=== PATIENT | male | born 1930 | race Caucasian/White ===

== ENCOUNTER 2017-04-02 11:32 | Inpatient (IN) | payer MEDICARE, OTHER ==
[~2017-04-02] VITALS: Ht 180.3 cm; Wt 96.5 kg
--- NOTE | ~2017-04-02 | EKG ---
PATIENT: MELA HOPSON UNIT #: [id number] Ventricular Rate: 85 BPM Atrial Rate: 85 BPM P-R Interval: 194 ms QRS Duration: 118 ms Q-T Interval: 390 ms QTC Calculation(Bezet): 464 ms P Villard: 45 degrees Calculated R Villard: 41 degrees Calculated T Villard: 108 degrees Diagnosis Line: Normal sinus rhythm Diagnosis Line: Possible Left atrial enlargement Diagnosis Line: Septal infarct , age undetermined Diagnosis Line: Abnormal ECG Diagnosis Line: When compared with ECG of 03-APR-2017 05:35, Diagnosis Line: Septal infarct is now Present Diagnosis Line: Nonspecific T wave abnormality, worse in Inferior Diagnosis Line: leads Diagnosis Line: Confirmed by DAMION BARRETT MD ([id number]) on 04/04/2017 Diagnosis Line: 7:16:47 AM INTERPRETING MD: ARNOLD ACEVES
--- NOTE | ~2017-04-02 | CR63 ---
[facility] A Service of [facility] RADIOLOGY TEXT RESULTS PATIENT: MELA HOPSON LOCATION: [facility] : 32 UNIT #: [id number] AGE: [address]: Wilmer Harrison MD SEX: M ORDER DR: [id number] [facility] [address] [facility] [place], [place] [address] [id number] I MR#: [id number] #: [id number] NAME: MELA HOPSON. : 1930 SEX: M STUDY DATE/TIME: 04/02/2017 12:22 UNIT: [facility] ROOM: [facility] STUDY DESCRIPTION: CR Chest 2 View Attending Physician: Wilmer Harrison M.D. Ordering Physician: Pascual Hinton M.D. Primary Care Physician: Kip Ambrose M.D. MEDICAL IMAGING REPORT This report is preliminary unless electronic signature is present EXAM Chest x-ray INDICATIONS Shortness of air today. History of hypertension. TECHNIQUE PA and lateral views of the chest are compared with 03/06/2016. FINDINGS Heart is enlarged. There is some mild infiltrate or atelectasis at the left base. The lateral views are essentially nondiagnostic. No pneumothorax. IMPRESSION Stable cardiomegaly. Mild infiltrate or atelectasis left lung base. Please note that the lateral views are essentially nondiagnostic. Dictated by... Robson Tse Jr., M.D. THIS IS AN ELECTRONICALLY VERIFIED REPORT Robson Tse Jr., M.D. at 04/03/2017 7:57 AM PEDRO/rashid TD: 04/02/2017 21:59 JOB #: [id number] MEDICAL IMAGING REPORT Page 1 of 1 COPY
--- NOTE | ~2017-04-02 | A ---
[facility] [place] Nutrition Therapy DATE: 04/06/17 Patient: MELA HOPSON Physician: ROSY Address: [address] Room/Bed: [address] [place] [address], Zip: [place] [address] Admit Date: 04/03/17 Date of : 32 Height: 5 11 Weight: 212 96.5 NUTRITIONAL ASSESSMENT: REASON: Consult re: low potassium diet education Admitting dx: 86 y/o male admitted with dyspnea and weakness PMH: CVA, CKD stage III s/p nephrectomy for renal cell cancer, PAF, BPH, DM, PVD, CAD, HTN, HLD Anthropometrics: Ht: 71", Wt: 96.5 kg, BMI: 30 (stage I obese) Labs: glucose 141, BUN 55, creat 2.1, GFR 28.1, glucose POC 116-221, A1C 8.5 (11/09/15), Na/K WNL since admission, no Phos/Mg drawn Meds: Reviewed Assessment: Chart reviewed, events noted. See admitting dx and PMH as stated above. Low potassium diet education given to the patient's with handouts and RD contact info. The handout was verbally reviewed with her. She was compliant and asked questions, but I am unsure of how well the information was understood and will be able to be implemented at home, as her and her are both of advanced age. RD explained rationale for diet education, noting the patient has CKD stage III s/p nephrectomy with abnormal renal labs, to help prevent the necessity for dialysis. was appreciative and I encouraged her to call our office with any questions. Respectfully, Maryann Lockwood, [place], LD [facility] cc: client file
--- NOTE | ~2017-04-02 | CO ---
Unit #: [id number] #: [id number] Patient: MELA HOPSON [id number] [address] [address] [id number] I MR#: [id number] NAME: MELA HOPSON. ROOM: 55 Age: 86 Sex: M Admission Date: 04/03/2017 : 1930 Attending Physician: Wilmer Harrison M.D. Primary Care Physician: Kip Ambrose M.D. Consultation Date: 04/02/2017 CONSULTATION REPORT REASON FOR CONSULTATION Renal insufficiency. Thank you very much for asking me to see this patient in consultation. HISTORY OF PRESENT ILLNESS Mr. eMla Hopson is an 86-year-old male with history of chronic kidney disease, late stage 3 to early stage 4, who I see in the office who in 2015 had a creatinine of 1.8 and plus or minus, in 2014 his creatinine ranging between 1.4 and 2, in 2013 again 1.6 and 2. He is status post right nephrectomy secondary to renal cell CA in 2009. The patient presented here with increasing shortness of breath, occasional nausea. No vomiting. No chest pain. No significant swelling. No urinary symptoms. He was noted upon presentation to have a BUN and creatinine of 32 and 2.0. Because of this, I was asked to see the patient. The patient also initial troponin was noted to be increased to 2.17. He states again his shortness of breath only last several days. 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 ALLERGIES He is allergic to Ambien, Zoloft, Lipitor. SOCIAL HISTORY He does not smoke or drink. He is . REVIEW OF SYSTEMS As mentioned in the HPI. Denies any fevers, chills, visual problems, sinus problems, cough, or hemoptysis. No severe abdominal pain. No nausea, vomiting, or diarrhea. No increased urinary symptoms. No skin rashes. No recent seizures or strokes. Again, he does have the chronic weakness from his previous stroke. FAMILY HISTORY Noncontributory. PHYSICAL EXAMINATION Unit #: [id number] #: [id number] Patient: MELA HOPSON GENERAL: He is alert and oriented. His and daughter at bedside. VITAL SIGNS: T-max 99.3, pulse 77 to 96, blood pressure 113 to 132 over 72 to 80. HEENT: He is normocephalic and atraumatic. Pupils are equal, round, and reactive to light. Extraocular muscles are intact. Hearing appears to be normal. Mouth is clear. No erythema. No exudate. NECK: Supple. No adenopathy. CARDIAC: He is without a rub. No S3 or S4. LUNGS: Sound fairly clear anterior and laterally and posteriorly. ABDOMEN: Bowel sounds positive. Nontender. Soft. EXTREMITIES: He has some very trace lower extremity swelling. His pulses are intact in lower extremities. SKIN: No acute rashes. NEURO: Weakness on his right side. : Deferred. DIAGNOSTIC STUDIES LABORATORY RESULTS: Shows sodium of 135, potassium 4.6, chloride is 101, bicarb is 23, BUN and creatinine of 32 and 2.0 with a glucose of 301. His calcium is 8.6, albumin 3.4. BNP 769. Lactic acid 3.1. INR is 1.1. Troponin is 2.17. UA shows specific gravity of 1.026, 2+ protein, 500 of glucose, 0 to 2 rbc's, 2 to 5 wbc's. Again previous creatinine is as mentioned above. His hemoglobin [place] 15.7[place] [address], platelets 183,000. IMAGING STUDIES: Last renal ultrasound was in 2016 on his left side showed just a 2 cm cyst. ASSESSMENT AND PLAN 1. Chronic kidney disease, late stage 3, early stage 4. Again, creatinine is a little elevated, but overall probably around his baseline. Due to his increased shortness of breath, I agree with some IV Lasix. We will adjust his Lasix to 40 mg IV q.12 hours for now. We will follow electrolytes and adjust depending on his volume and his electrolytes. I did have a long discussion with he and his daughter and his about contrast dye needed. The risks versus benefits of heart catheterization if needed and they understand and they will think about it and we will wait and see what cardiology's input to see if catheterization is recommended or not. If one is, I certainly would hold his diuretics and no CRISTOFER inhibitor, around cardiac catheterization time. Fluids, again may want to not give those due to the fact that he has increased shortness of breath, but again await for Cardiology input and will follow. 2. Hypertension, continue current medications. We will follow trends. 3. Atherosclerotic coronary artery disease that appears to have maybe myocardial infarction at this time. 4. Benign prostatic hyperplasia. We will order a bladder scan postvoid residual. 5. Diabetes mellitus. 6. Status post nephrectomy secondary to renal cell cancer in the past. 7. History of cerebrovascular accident. Dictated by... Erick Basilio M.D. CASEY/angela Unit #: [id number] #: [id number] Patient: MELA HOPSON [place] TD: 04/04/2017 01:53 JOB #: [id number] CONSULTATION REPORT Page 1 of 1 X Anatoly Basilio MD X CONSULTATION REPORT
--- NOTE | ~2017-04-02 | EKG ---
PATIENT: MELA HOPSON UNIT #: [id number] Ventricular Rate: 91 BPM Atrial Rate: 91 BPM P-R Interval: 200 ms QRS Duration: 128 ms Q-T Interval: 384 ms QTC Calculation(Bezet): 472 ms P Noble: 65 degrees Calculated R Noble: 91 degrees Calculated T Noble: -52 degrees Diagnosis Line: Normal sinus rhythm Diagnosis Line: Rightward axis Diagnosis Line: Non-specific intra-ventricular conduction block Diagnosis Line: T wave abnormality, consider inferolateral Diagnosis Line: ischemia Diagnosis Line: Abnormal ECG Diagnosis Line: When compared with ECG of 06-APR-2016 15:24, Diagnosis Line: [place] interval has decreased Diagnosis Line: Non-specific intra-ventricular conduction block Diagnosis Line: has replaced Right bundle branch block Diagnosis Line: inferolateral ischemia is new Diagnosis Line: Confirmed by DAMION BARRETT MD ([id number]) on 04/02/2017 Diagnosis Line: 10:14:22 PM INTERPRETING MD: ARNOLD ACEVES
--- NOTE | ~2017-04-02 | HP ---
Unit #: [id number] #: [id number] Patient: MELA HOPSON [id number] [address] [address] [id number] I MR#: [id number] NAME: MELA HOPSON. ROOM: 17588 Age: 86 Sex: M Admission Date: 04/02/2017 : 1930 Attending Physician: Wlimer Harrison M.D. Primary Care Physician: Kip Ambrose M.D. HISTORY AND PHYSICAL HISTORY OF PRESENT ILLNESS This is an 86-year-old male who is a patient of Dr. Brendon Fajardo and was last seen in his office in July 2016. He has a prior history of paroxysmal afib, CVA with right-sided residual, chronic kidney disease stage 3 status post nephrectomy in 2008 for renal cell cancer, carotid artery disease, peripheral vascular disease, status post lower extremity stent, echocardiogram with EF of 55% in 2008, hypertension, hyperlipidemia, diabetes mellitus, benign prostate hypertrophy and coronary artery disease status post cardiac cath in 2008. His cath results are not currently available but his daughter and state he had nonobstructive disease in small vessels. He presented to the ER with increasing dyspnea and weakness ongoing since about Sunday. He denies chest pain or chest discomfort, denies lower extremity edema, abdominal swelling or PND. He does endorse orthopnea and an occasional nonproductive cough. He had some diarrhea on Sunday all day, after eating blueberries but denies recent illness with fevers, chills or body aches. His point of care troponin in the ER was 1.42. Chest x-ray showed cardiomegaly with pulmonary vascular congestion and a left lower lobe infiltrate. PAST MEDICAL HISTORY 1. Paroxysmal afib, not on chronic anticoagulation. 2. History of CVA with right-sided residual. 3. Chronic kidney disease stage 3, status post nephrectomy in 2008 for renal cell cancer. 4. Carotid artery disease. 5. Peripheral vascular disease, status post lower extremity stent. 6. Echocardiogram with EF 55% in 2008. 7. Coronary artery disease, status post cath with nonobstructive disease in 2008 (records currently not available). 8. Hypertension. 9. Hyperlipidemia. 10. Diabetes mellitus. 11. Benign prostate hypertrophy. PAST SURGICAL HISTORY 1. Right nephrectomy. 2. Cardiac catheterization. 3. Appendectomy. SOCIAL HISTORY The patient lives with his . He is immobile. He uses his walker to Unit #: [id number] #: [id number] Patient: MELA HOPSON get from his bed to his chair but uses a wheelchair outside his home. He used to smoke but quit more than 60 years ago. He denies a history of alcohol or illicit drug use. FAMILY HISTORY His mother had coronary artery disease in her 70s. ALLERGIES Zoloft, Ambien, Zocor. HOME MEDICATIONS 1. Januvia 50 mg p.o. daily. 2. Levemir FlexTouch 25 units q.a.m. 3. Metoprolol 25 mg p.o. daily. 4. Amiodarone 50 mg p.o. daily. 5. Lovastatin 40 q.h.s. 6. Levothyroxine 75 mcg q.a.m. 7. Allopurinol 100 mg p.o. b.i.d. REVIEW OF SYSTEMS A 10-point review of systems was negative except as indicated in HPI. The patient denies any chest pain or chest discomfort. He did have some diarrhea on Sunday. He denies nausea, vomiting or change in appetite. He denies abdominal swelling or lower extremity edema as well as PND. He does endorse orthopnea and dyspnea on exertion, as well as a nonproductive occasional cough. PHYSICAL EXAMINATION VITAL SIGNS: Temperature 99.3, heart rate 96, respiratory rate 18, blood pressure 113/80. GENERAL: This is a pleasant, , 86-year-old obese male resting in bed in no acute distress. HEENT: Head is atraumatic and normocephalic. Pupils are equal and reactive to light. Mucous membranes are moist and intact. NECK: Supple. Trachea is midline. No JVD. CARDIOVASCULAR: S1 and S2. Regular rate and rhythm. LUNGS: Clear and diminished in bases. Nonlabored respirations. ABDOMEN: Soft, nontender, nondistended with bowel sounds present. EXTREMITIES: Pulses are diminished in bilateral lower extremities. No pedal edema. No cyanosis. NEUROLOGIC: Alert and oriented x3. Follows all commands with some right-sided weakness. DIAGNOSTIC STUDIES LABORATORY RESULTS: Point of care troponin was 1.42 and BNP was 769. Sodium 135, potassium 4.6, chloride 101, BUN 32, creatinine 2, glucose 301, hemoglobin 15.3, hematocrit 45.3, white blood cell count 14.7, platelets 183 and PT 12.3, INR 1.1. IMAGING: Chest x-ray showed mild cardiomegaly with left lower lobe infiltrate. CARDIOVASCULAR: EKG reveals sinus rhythm with a ventricular rate of 90 and right bundle-branch block and nonspecific T-wave abnormality. ASSESSMENT 1. Dyspnea. 2. Non-ST elevation myocardial infarction. Unit #: [id number] #: [id number] Patient: MELA HOPSON 3. Diabetes mellitus. 4. Hypertension. 5. Hyperlipidemia. 6. History of cerebrovascular accident. 7. Chronic kidney disease, status post nephrectomy secondary to renal cell cancer. 8. Peripheral vascular disease, status post stent. 9. Acute congestive heart failure. 10. Coronary artery disease, status post cath with nonobstructive disease per patient (records not available). PLAN The patient denies chest pain. Breathing is improved on oxygen. We will admit for gentle diuresis. Check echocardiogram and fasting lipid profile. Continue to trend enzymes. Obtain old cath results. Family wants conservative treatment. Family states patient's blood glucoses are hard to manage when he is admitted to the hospital. He follows Dr. Barba outpatient. We will consult him for blood glucose management. We will ask Dr. Sony Basilio, who follows him as an outpatient, to follow him as well. Continue home medications. Diurese with Lasix 40 mg IV daily. Treat with aspirin, statin, beta lasha and Lovenox. Dictated by Ana Christianson APRN for Benito Carias/moose TD: 04/02/2017 17:09 JOB #: [id number] HISTORY AND PHYSICAL Page 1 of 1 X X HISTORY AND PHYSICAL
--- NOTE | ~2017-04-02 | EKG ---
PATIENT: MELA HOPSON UNIT #: [id number] Ventricular Rate: 79 BPM Atrial Rate: 79 BPM P-R Interval: 162 ms QRS Duration: 124 ms Q-T Interval: 386 ms QTC Calculation(Bezet): 442 ms P Magnolia: 35 degrees Calculated R Magnolia: 52 degrees Calculated T Magnolia: 94 degrees Diagnosis Line: Normal sinus rhythm Diagnosis Line: Possible Left atrial enlargement Diagnosis Line: Non-specific intra-ventricular conduction delay Diagnosis Line: Consider prior Anteroseptal infarct , age Diagnosis Line: undetermined Diagnosis Line: Abnormal ECG Diagnosis Line: When compared with ECG of 02-APR-2017 12:07, Diagnosis Line: (unconfirmed) Diagnosis Line: Anteroseptal infarct is now Present Diagnosis Line: Nonspecific T wave abnormality has replaced Diagnosis Line: inverted T waves in Inferior leads Diagnosis Line: Confirmed by CHAVA MCKENNA MD ([id number]) on Diagnosis Line: 04/02/2017 10:51:32 PM INTERPRETING MD: MAXIMINO
--- NOTE | ~2017-04-02 | CR18 ---
[facility] A Service of [facility] RADIOLOGY TEXT RESULTS PATIENT: MELA HOPSON LOCATION: [facility] 5501 : 32 UNIT #: [id number] AGE: [address]: Wilmer Harrison MD SEX: M ORDER DR: [id number] [facility] [address] [facility] [address]. [place], [place] [address] [id number] I MR#: [id number] Acc #: [id number] NAME: MELA HOPSON. : 1930 SEX: M STUDY DATE/TIME: 04/05/2017 12:07 UNIT: [facility] ROOM: [facility] STUDY DESCRIPTION: CR Ankle 2 Views Rt Attending Physician: Wilmer Harrison M.D. Ordering Physician: Erick Basilio M.D. Primary Care Physician: Kip Ambrose M.D. MEDICAL IMAGING REPORT This report is preliminary unless electronic signature is present EXAMINATION Two views right ankle. DATE 04/05/2017 HISTORY Right ankle pain for 1 day. Fell. History of gout. COMPARISON None. FINDINGS Obliquely oriented mildly displaced fracture of the distal right fibular metaphysis extending to the level of the talar dome. There is approximately 3 mm lateral displacement of the main distal fracture fragment. Posterior malleolus and medial malleolus appear intact. There is mild widening of the medial margin of the ankle joints which may indicate underlying ligamentous injury. Osteopenic changes are present. Calcific atherosclerotic changes are noted. There is a small plantar calcaneal spur. IMPRESSION 1. Oblique mildly displaced fracture involving the distal right fibular metaphysis extending to the level of the talar dome. 2. Mild widening of the medial margin of the ankle joint may represent underlying ligamentous instability. No joint dislocation. 3. Osteopenia. Dictated by... Gilma Hernandez M.D. [facility] A Service of [facility] RADIOLOGY TEXT RESULTS PATIENT: MELA HOPSON LOCATION: [facility] 5501-11 : 32 UNIT #: [id number] AGE: [address]: Wilmer Harrison MD SEX: M ORDER DR: THIS IS AN ELECTRONICALLY VERIFIED REPORT Gilma Hernandez M.D. at 04/06/2017 1:54 PM ARMIN/cindi TD: 04/05/2017 23:26 JOB #: [id number] MEDICAL IMAGING REPORT Page 1 of 1 COPY
--- NOTE | ~2017-04-02 | DS ---
Unit #: [id number] #: [id number] Patient: MELA HOPSON [id number] [address] [address] [id number] I MR#: [id number] NAME: MELA HOPSON ROOM: [facility] Age: 86 Sex: M Admission Date: 04/03/2017 : 1930 Discharge Date: Attending Physician: Wilmer Harrison M.D. Primary Care Physician: Kip Ambrose M.D. DISCHARGE SUMMARY ADDENDUM DISCHARGE MEDICATIONS Nitroglycerin 0.4 mg sublingual q.5 minutes x3 p.r.n. for chest pain. Dictated by... BRISIEDA Coyle TD: 04/06/2017 13:17 JOB #: [id number] DISCHARGE SUMMARY Page 1 of 1 X X DISCHARGE SUMMARY
--- NOTE | ~2017-04-02 | CO ---
Unit #: [id number] #: [id number] Patient: MELA HOPSON [id number] [address] [address] [id number] I MR#: [id number] NAME: MELA HOPSON. ROOM: 55 Age: 86 Sex: M Admission Date: 04/03/2017 : 1930 Attending Physician: Wilmer Harrison M.D. Primary Care Physician: Kip Ambrose M.D. Consultation Date: 04/05/2017 CONSULTATION REPORT REASON FOR CONSULT Right ankle fracture. HISTORY OF PRESENT ILLNESS This is an 86-year-old male, who presented to the emergency department with increasing dyspnea and weakness for about three days. His and daughter state that he did sustain a fall during one of his episodes of dyspnea but did not complain of any injury at that time. As his dyspnea and weakness worsened, he was then taken to the emergency room for evaluation. He was admitted with diagnosis of CHF exacerbation and pulmonary congestion. While inpatient, stated that he was having some right ankle pain. Upon inspection, swelling and ecchymosis were found so an x-ray was obtained showing a distal fibula fracture. The patient, of note, had a stroke in the late 90s and has residual weakness of the right side including his arm and leg. He is unable to bear any weight on the right leg and his states that he mainly drags his foot as he walks using a walker. Currently, he states his pain is minimal to moderate and depends on the positioning of his leg. He is unable to move his ankle actively but does have some sensation to light touch and pain. Denies pain in any other joints or any other musculoskeletal symptoms at this time. PAST MEDICAL HISTORY 1. Paroxysmal atrial fibrillation. 2. History of CVA with right-sided residual weakness. 3. Chronic kidney disease, stage 3, status post nephrectomy in 2008 for renal cell cancer. 4. Carotid artery disease. 5. Peripheral vascular disease. 6. Coronary artery disease. 7. Hypertension. 8. Hyperlipidemia. 9. Diabetes mellitus. 10. BPH. PAST SURGICAL HISTORY 1. Right nephrectomy. 2. Cardiac catheterization. 3. Appendectomy. SOCIAL HISTORY The patient lives at home with his . He is minimally mobile and uses his walker to get to his wheelchair but uses a wheelchair for the most part for ambulation. Quit smoking 60 years ago. Denies alcohol or drug Unit #: [id number] #: [id number] Patient: MELA HOPSON. FAMILY HISTORY Positive for coronary artery disease. ALLERGIES Zoloft, Ambien, Zocor. HOME MEDICATIONS 1. Januvia 50 mg p.o. daily. 2. Levemir FlexTouch 25 units q.a.m. 3. Metoprolol 25 mg p.o. daily. 4. Amiodarone 50 mg p.o. daily. 5. Lovastatin 40 mg nightly. 6. Levothyroxine 75 mcg q.a.m. 7. Allopurinol 100 mg p.o. b.i.d. REVIEW OF SYSTEMS A full review of systems was conducted and other than his resolving symptoms of dyspnea and orthopnea and his right ankle pain, all other review of systems were negative. PHYSICAL EXAMINATION GENERAL: He is in no acute distress. He is alert and oriented x3 and pleasant. VITAL SIGNS: He is afebrile and his vital signs are stable. EXTREMITIES: Examination of the right lower extremity reveals some ecchymosis and swelling to the ankle. The right lower extremity rests in an externally rotated position due to the patient's hemiparesis and he is unable to internally rotate. This is causing the foot to sublux laterally, causing skin tenting over the medial malleolus. He is tender over the medial side of the ankle as well as over the distal fibula. He does state that he has intact sensation but is unable to move his toes or dorsiflex or plantar flex his ankle which he states is a chronic issue. He has somewhat delayed but present capillary refill in his toes. DIAGNOSTIC STUDIES IMAGING: Three views of the right ankle were taken which show an oblique distal fibula fracture at the level of the ankle joint with some medial clear space widening. No other fractures or dislocations visible. ASSESSMENT An 86-year-old male with right bimalleolar equivalent ankle fracture. PLAN Treatment options were discussed with the patient as well as the family and due to the patient's multiple co-morbidities as well as his hemiparesis and lack of ambulation on the right side, it is thought that it would be best to treat him conservatively at this time. A short-leg cast was applied after closed reduction was performed at bedside. The patient tolerated the procedure well without complication. Post reduction x-rays were taken which show the ankle to be in good alignment and the cast to be in a proper location. The family and the patient were instructed on signs of decreased vasculature within the foot. Due to his vasculature issues, they need to keep a close eye on his vascular status within that extremity, making sure that he is getting good blood flow to his toes. We will see him back in clinic in 10-[address] Frank. Clinic phone number is [phone]. The patient's family is to Unit #: [id number] #: [id number] Patient: MELA HOPSON call to make that appointment and no surgical intervention is planned at this time. Dictated by... Roberto Morris M.D. for Sam Frank M.D. JAMEEL/acosta TD: 04/07/2017 10:23 JOB #: [id number] CONSULTATION REPORT Page 1 of 1 X X CONSULTATION REPORT
--- NOTE | ~2017-04-02 | EKG ---
PATIENT: MELA HOPSON UNIT #: [id number] Ventricular Rate: 81 BPM Atrial Rate: 81 BPM P-R Interval: 188 ms QRS Duration: 124 ms Q-T Interval: 434 ms QTC Calculation(Bezet): 504 ms P [place]: 42 degrees Calculated R [place]: 53 degrees Calculated T [place]: 56 degrees Diagnosis Line: Normal sinus rhythm Diagnosis Line: Possible Left atrial enlargement Diagnosis Line: Septal infarct , age undetermined Diagnosis Line: Abnormal ECG Diagnosis Line: When compared with ECG of 04-APR-2017 05:36, Diagnosis Line: Incomplete right bundle branch block is no longer Diagnosis Line: Present Diagnosis Line: Septal infarct is now Present Diagnosis Line: Confirmed by DAMION BARRETT MD ([id number]) on 04/06/2017 Diagnosis Line: 4:57:47 PM INTERPRETING MD: ARNOLD ACEVES
--- NOTE | ~2017-04-02 | CR21 ---
[facility] A Service of [facility] RADIOLOGY TEXT RESULTS PATIENT: MELA HOPSON LOCATION: [facility] 55- : 32 UNIT #: [id number] AGE: [address]: Wilmer Harrison MD SEX: M ORDER DR: [id number] [facility] [address] [facility]. [place], [place] [address] [id number] I MR#: [id number] Acc #: [id number] NAME: MELA HOPSON. : 1930 SEX: M STUDY DATE/TIME: 04/05/2017 18:36 UNIT: [facility] ROOM: [facility] STUDY DESCRIPTION: CR Ankle Min 3 Views Rt Attending Physician: Wilmer Harrison M.D. Ordering Physician: Marcella Fernandez M.D. Primary Care Physician: Kip Ambrose M.D. MEDICAL IMAGING REPORT This report is preliminary unless electronic signature is present EXAM Four views right ankle. INDICATION Right ankle pain after a reduction. Patient fractured his ankle on Sunday. FINDINGS Comparison made to prior exam from earlier today. Patient is again noted to have an obliquely oriented fracture of the distal fibular diametaphysis with extension to the articular surface. Full assessment of the fracture is limited due to overlying splinting material but I do think alignment appears improved significantly when compared to the exams from earlier today. There is an ankle effusion and associated soft tissue swelling. No other definite fractures are seen. There is enthesopathic change seen along the plantar aspect of the calcaneus. IMPRESSION Bony alignment appears improved, post reduction. Full assessment of fracture is limited secondary to overlying splinting material. Dictated by... Vane Chery M.D. THIS IS AN ELECTRONICALLY VERIFIED REPORT Vane Chery M.D. at 04/06/2017 5:47 PM AFF/tmw TD: 04/06/2017 11:47 JOB #: [id number] [facility] A Service of [facility] RADIOLOGY TEXT RESULTS PATIENT: MELA HOPSON LOCATION: [facility] 556-01 : 32 UNIT #: [id number] AGE: [address]: Wilmer Harrison MD SEX: M ORDER DR: MEDICAL IMAGING REPORT Page 1 of 1 COPY
--- NOTE | ~2017-04-02 | CO ---
Unit #: [id number] #: [id number] Patient: MELA HOPSON [id number] [address] [address] [id number] I MR#: [id number] NAME: MELA HOPSON. ROOM: 55 Age: 86 Sex: M Admission Date: 04/03/2017 : 1930 Attending Physician: Wilmer Harrison M.D. Primary Care Physician: Kip Ambrose M.D. Consultation Date: 04/02/2017 CONSULTATION REPORT HISTORY OF PRESENT ILLNESS This is an 86-year-old male with history of multiple medical problems, known to me from my office for type 2 diabetes mellitus. He presented to the emergency room with generalized weakness, increasing shortness of air. His blood sugar was above 300. I have been asked to see the patient for further management. PAST MEDICAL HISTORY Type 2 diabetes mellitus, history of CVA with right-sided residual paroxysmal atrial fibrillation, chronic kidney disease stage 3, peripheral vascular disease, carotid artery disease, coronary artery disease, hypertension, hyperlipidemia, benign prostatic hypertrophy. PAST SURGICAL HISTORY Right nephrectomy, cardiac cath, appendectomy. SOCIAL HISTORY Lives with his . He is immobilized, in a wheelchair or uses walker. Former tobacco use. No alcohol. FAMILY HISTORY Remarkable for coronary artery disease. ALLERGIES Zoloft, Ambien, Zocor. HOME MEDICATIONS Januvia 50 mg daily, Levemir 25 units daily in the morning, glipizide 10 mg b.i.d., levothyroxine 75 mcg daily, amiodarone 50 mg daily, metoprolol, lovastatin. REVIEW OF SYSTEMS 10-point review of systems completed, is unremarkable except as noted in HPI. PHYSICAL EXAMINATION VITAL SIGNS: The patient has a low-grade fever on admission 99.3, hemodynamically stable. HEENT: EOMI. Pupils equally reactive to light. NECK: Supple. No thyromegaly noted. CHEST: Decreased air entry bilaterally. CVS: S1, S2. No murmurs. ABDOMEN: Obese, nontender. Bowel sounds positive. EXTREMITIES: No ulcers noted. No edema. Unit #: [id number] #: [id number] Patient: MELA HOPSON DIAGNOSTIC STUDIES LABORATORY RESULTS: Creatinine is 2.0, glucose 301, sodium 135, potassium 4.6. Troponin 3.65 on admission. A1c was 8.5 that was in 10/2015. ASSESSMENT 1. Type 2 diabetes mellitus, uncontrolled. 2. Acute myocardial infarction. 3. Chronic kidney disease stage 3. PLAN We will continue Januvia 50 mg daily, consistent carb diet. Levemir 25 units in the morning daily. Change glipizide 5 mg b.i.d. Accu-Cheks a.c. and h.s. We will continue to follow the patient for further management. Dictated by... Benito Hinojosa/angela TD: 04/03/2017 18:13 JOB #: [id number] CONSULTATION REPORT Page 1 of 1 X Tyson Barba MD X CONSULTATION REPORT
--- NOTE | ~2017-04-02 | CR63 ---
[facility] A Service of [facility] RADIOLOGY TEXT RESULTS PATIENT: MELA HOPSON LOCATION: [facility] : 32 UNIT #: [id number] AGE: [address]: Wilmer Harrison MD SEX: M ORDER DR: [id number] [facility] [address] [facility]. [place], [place] [address] [id number] I MR#: [id number] Acc #: [id number] NAME: MELA HOPSON. : 1930 SEX: M STUDY DATE/TIME: 04/03/2017 7:28 UNIT: [facility] ROOM: [facility] STUDY DESCRIPTION: CR Chest 2 View Attending Physician: Wilmer Harrison M.D. Ordering Physician: Wilmer Harrison M.D. Primary Care Physician: Kip Ambrose M.D. MEDICAL IMAGING REPORT This report is preliminary unless electronic signature is present EXAM PA lateral chest, 04/03/2017 HISTORY Shortness of breath, acute myocardial infarction. Symptoms began 04/02/2017. History of kidney cancer. Additional history of diabetes, transient ischemic attack, congestive heart failure, hypertension. COMPARISON PA and lateral chest radiograph, 04/02/2017 FINDINGS The previously described left basilar airspace disease appears improved or resolved. Suspected minimal atelectasis in the right costophrenic angle. Stable borderline cardiac enlargement. Trace right pleural effusion is thought to be present. No pneumothorax is seen. Study is attenuated by patient body habitus. IMPRESSION 1. Small right pleural effusion and mild right basilar atelectasis at the costophrenic angle. 2. Previously described left basilar atelectasis appears re-expanded or resolved. 3. Size limited study. Dictated by... Gilma Hernandez M.D. THIS IS AN ELECTRONICALLY VERIFIED REPORT Gilma Hernandez M.D. at 04/05/2017 8:49 AM ARMIN/elidia [facility] A Service of [facility] RADIOLOGY TEXT RESULTS PATIENT: MELA HOPSON LOCATION: [facility] 556-01 : 32 UNIT #: [id number] AGE: [address]: Wilmer Harrison MD SEX: M ORDER DR: TD: 04/03/2017 11:27 JOB #: [id number] MEDICAL IMAGING REPORT Page 1 of 1 COPY
--- NOTE | ~2017-04-02 | EKG ---
PATIENT: MELA HOPSON UNIT #: [id number] Ventricular Rate: 75 BPM Atrial Rate: 75 BPM P-R Interval: 152 ms QRS Duration: 122 ms Q-T Interval: 442 ms QTC Calculation(Bezet): 493 ms P [place]: 54 degrees Calculated R [place]: 60 degrees Calculated T [place]: 88 degrees Diagnosis Line: Normal sinus rhythm Diagnosis Line: Possible Left atrial enlargement Diagnosis Line: Non-specific intra-ventricular conduction delay Diagnosis Line: Nonspecific ST and T wave abnormality Diagnosis Line: Abnormal ECG Diagnosis Line: When compared with ECG of 02-APR-2017 19:41, Diagnosis Line: Non-specific change in ST segment in Anterior Diagnosis Line: leads Diagnosis Line: Confirmed by CHAVA MCKENNA MD ([id number]) on Diagnosis Line: 04/03/2017 12:18:28 PM INTERPRETING MD: MAXIMINO
--- NOTE | ~2017-04-02 | DS ---
Unit #: [id number] #: [id number] Patient: MELA HOPSON [id number] [address] [address] [id number] I MR#: [id number] NAME: MELA HOPSON. ROOM: 55 Age: 86 Sex: M Admission Date: 04/03/2017 : 1930 Discharge Date: 04/06/2017 Attending Physician: Wilmer Harrison M.D. Primary Care Physician: Kip Ambrose M.D. DISCHARGE SUMMARY DISCHARGE DIAGNOSES 1. Inferior wall myocardial infarction. The patient and family opted for conservative medical management. No cardiac catheterization completed. 2. 2-D echocardiogram, 04/02/2017, revealed technically limited study. Left ventricular ejection fraction 20%. Inferior wall apical akinesis. Aortic valve leaflet sclerotic with no stenosis. Mild to moderate aortic regurgitation and mitral regurgitation. Moderate to severe pulmonic regurgitation. Small pericardial effusion versus fat pad. 3. Coronary artery disease status post cardiac catheterization with nonobstructive disease in 2008. Operative report unavailable. 4. Ischemic cardiomyopathy. 5. Chronic kidney disease stage 4. 6. Right distal fibula fracture with cast applied. Nonoperative management due to medical conditions. 7. Hypertension. 8. Hyperlipidemia. 9. Diabetes mellitus type 2, uncontrolled. 10. History of renal cell carcinoma status post nephrectomy. 11. Paroxysmal atrial fibrillation, now sinus rhythm. No long-term anticoagulation per documentation. 12. History of cerebrovascular accident with right-sided residual. 13. Carotid artery disease. 14. Peripheral arterial disease status post lower extremity stent. 15. Benign prostatic hypertrophy. 16. Anxiety. 17. Reformed tobacco abuse. DISCHARGE MEDICATIONS 1. Amiodarone 100 mg p.o. daily. 2. Tylenol 650 mg p.o. q.4 hours p.r.n. for pain. 3. Metoprolol succinate 25 mg p.o. daily. 4. Bisacodyl 5 mg p.o. daily p.r.n. for constipation. 5. MiraLax 17 gm p.o. daily p.r.n. for constipation. 6. Furosemide 40 mg p.o. daily. 7. Lovastatin 40 mg p.o. q.h.s. 8. Lisinopril 10 mg p.o. q.h.s. 9. Levemir 25 units subcu daily at breakfast. 10. Allopurinol 200 mg p.o. daily. 11. Aspirin 81 mg p.o. daily. 12. Brilinta 90 mg p.o. b.i.d. 13. Levothyroxine 75 mcg p.o. daily. 14. Imdur ER 30 mg p.o. daily. Unit #: [id number] #: [id number] Patient: MELA HOPSON 15. Glipizide 5 mg p.o. daily before breakfast. HOSPITAL COURSE This is an 86-year-old white male known to Dr. Brendon Fajardo with a past medical history of paroxysmal atrial fibrillation not on anticoagulation according to documentation. The patient has a history of a cerebrovascular accident with right-sided residual, chronic kidney disease with history of renal cell carcinoma and nephrectomy in 2008. The patient has peripheral vascular disease with history of lower extremity stent. A 2-D echocardiogram in 2008 revealed an ejection fraction of 55%. He is known to have hypertension, hyperlipidemia, diabetes mellitus type 2 and nonobstructive coronary artery disease per cardiac catheterization 2008 though operative details are unknown. The patient presented to the emergency department on 04/03/2017 with complaints of shortness of breath and weakness. Please see details in H and P. His initial point of care troponin was 1.42. Chest x-ray revealed mild pulmonary vascular congestion and a left lower lobe infiltrate. EKG revealed sinus rhythm with a right bundle branch block and nonspecific ST-T wave changes. The patient was admitted for dyspnea and an acute non-ST elevation myocardial infarction. He was given gentle diuresis. Fasting lipid profile was obtained as well as a 2D echocardiogram. The patient's cardiac enzymes were trended. His troponin peaked at 5.95. Cardiac catheterization was discussed but the patient and family opted for conservative management. No coronary angiography was completed. On 04/02/2017, a 2-D echocardiogram was completed and revealed an ejection fraction of 20%. There was inferior wall and apical akinesis. There was mild to moderate aortic and mitral regurgitation as well as moderate severe pulmonic regurgitation. The patient was continued on a beta lasha. The patient was cleared for lisinopril by Nephrology. He was continued on amiodarone to maintain sinus rhythm. He was started on aspirin and Brilinta. A loading dose of Brilinta was given. He was also given an Integrilin bolus and drip initially upon admission. The Integrilin drip was stopped and he was placed on a maintenance dose of Brilinta. He was started on oral nitrates. On 04/03/2017, he was seen by Nephrology. He was given oral Lasix. His creatinine and BUN were followed closely. His shortness of breath improved. There were no episodes of chest pain. On 04/03/2017, Physical Therapy and Occupational Therapy were consulted as well as the assistant case manager for discharge needs. The patient was recommended for [facility]. Cardiac Rehab was also consulted. The patient was given MiraLax and Bisacodyl for constipation. He was given Ambien for his insomnia but that was subsequently discontinued. Dr. Barba was consulted on 04/02/2017 for uncontrolled diabetes. The patient was placed on a consistent carbohydrate diet as well as Levemir. His Glipizide was adjusted. The patient was noted to have right lower extremity pain. Imaging was obtained and revealed a mildly displaced oblique fracture involving the distal right fibula. Dr. Frank with Orthopaedic Surgery was consulted. The patient was placed in a cast. He was managed medically due to his history. He was instructed to follow up with Dr. Frnak as an outpatient in two weeks. The patient's vital signs are stable. His cardiac markers are trending down. His shortness of breath has resolved. His creatinine is stable at 2.1. It has varied from 2.0 to 2.3. His blood glucose levels have improved. He is okay for discharge to rehab today. The patient is a DNR per request. A copy of living will has been obtained and is on the chart. Unit #: [id number] #: [id number] Patient: MELA HOPSON CONSULTANTS 1. Dr. Barba with Endocrinology. 2. Dr. Basilio with Nephrology. 3. Dr. Frank with Orthopaedic Surgery. DIAGNOSTIC STUDIES LABORATORY: WBC count 11.8, hemoglobin 13.2, hematocrit 38.7, platelets 226. Sodium 137, potassium 5.1, chloride 101, CO2 25, BUN 55, creatinine 2.1, glucose 141, total protein 7.4, albumin 3.4, AST 42, ALT 20, alkaline phosphatase 87. Troponin 1.42, 2.17, 5.95, 3.82, 3.65, 3.78, 1.97, 1.76. BNP is 769. Total cholesterol 124, triglycerides 111, LDL 54, HDL 48, TSH 3.16. INR 1.1. IMAGING: Chest x-ray on 04/02/2017 revealed stable cardiomegaly. Mild infiltrate or atelectasis in the left lung base. X-ray of the right ankle reveals an oblique mildly displaced fracture involving the distal right fibula. Mild widening of the medial margin of the ankle joint may represent underlying ligament instability. No joint dislocation. Osteopenia. Three-view x-ray of the right ankle revealed bony alignment appears improved post reduction. Full assessment of fracture limited secondary to overlying splinting material. CARDIOVASCULAR: EKG reveals normal sinus rhythm with a ventricular rate of 81 beats per minute. Poor R wave progression. QTC prolonged at 504 msec. PHYSICAL EXAMINATION CONSTITUTIONAL: This is an 86-year-old white male in no acute distress. VITAL SIGNS: Temperature 98. Pulse 66. Blood pressure 106/53. SKIN: Warm and dry. NECK: Supple. There is no jugular venous distension. No hepatojugular reflux. Normal carotid upstrokes. No bruits auscultated. HEART: S1, S2. Regular rate and rhythm. No murmurs, rubs or gallops. LUNGS: Bilateral breath sounds have good air entry throughout all lung sales. Respirations are even and unlabored. No rales, rhonchi or wheezes. ABDOMEN: Soft, nontender, nondistended. Positive bowel sounds auscultated x4 quadrants. No ascites noted. EXTREMITIES: Bilateral extremities have no pretibial pitting edema. DP and PT pulses are 2+. Capillary refill 2 seconds. DISCHARGE INSTRUCTIONS 1. [facility] 2. Follow up with primary care provider in three to four weeks. 3. Follow up with Dr. Frank in two weeks. 4. Follow up with Dr. Fajardo in four weeks. 5. Follow up with Nephrology in two to four weeks. 6. Diet: Low potassium with 1800 mL daily fluid restriction. 7. The patient is on medical management for non-ST elevation myocardial infarction. He is on a beta lasha, diuretic, CRISTOFER inhibitor, long-acting nitrate and dual antiplatelet therapy. 8. The patient is on Levemir and Glipizide for diabetes. 9. The patient is a DNR per request. A copy of living will has been reviewed. Unit #: [id number] #: [id number] Patient: MELA HOPSON Dictated by... Adrienne Chapa APRN for Benito Carias TD: 04/06/2017 13:19 JOB #: [id number] DISCHARGE SUMMARY Page 1 of 1 X X DISCHARGE SUMMARY
--- NOTE | ~2017-04-02 | EKG ---
PATIENT: MELA HOPSON UNIT #: [id number] Ventricular Rate: 75 BPM Atrial Rate: 75 BPM P-R Interval: 158 ms QRS Duration: 118 ms Q-T Interval: 476 ms QTC Calculation(Bezet): 531 ms P [place]: 58 degrees Calculated R [place]: 62 degrees Calculated T [place]: 121 degrees Diagnosis Line: Normal sinus rhythm Diagnosis Line: Low voltage QRS Diagnosis Line: Incomplete right bundle branch block Diagnosis Line: Nonspecific ST and T wave abnormality Diagnosis Line: Prolonged QT Diagnosis Line: Abnormal ECG Diagnosis Line: When compared with ECG of 03-APR-2017 14:54, Diagnosis Line: (unconfirmed) Diagnosis Line: Incomplete right bundle branch block is now Diagnosis Line: Present Diagnosis Line: Criteria for Septal infarct are no longer Present Diagnosis Line: Confirmed by DAMION BARRETT MD ([id number]) on 04/04/2017 Diagnosis Line: 7:22:25 AM INTERPRETING MD: ARNOLD ACEVES
[~2017-04-02 11:32] MED LIST: ACCUPRIL PO; ASPIRIN PO; ASPIRIN81 M2 PO; ATIVAN PO; CIPRO250 MG; CIPRO250 MG PO; FINASTERIDE5 MG PO; GLUCOTROL PO; GLUCOTROL10 MG PO; HCTZ PO; HYDROCODONE APA PO; HYDROCODONE-A1 UDTA4 PO; HYDROCODONE-APA1 T30 PO; INDOMETHACIN25 MG PO; INDOMETHACIN75 MG PO; JANUVIA50 MG PO; LEVOXYL50 MC1 PO; LISINOPRIL10 MG PO; LOPRESSOR PO; LOSARTAN POTASS50 MG PO; METFORMIN PO; MEVACOR PO; NIASPAN750 MG PO; NORCO 7.5-3251 EACH; NORVASC PO; OXYCODONE HCL5 M1 PO; PACERONE PO; PACERONE100 MG PO; PLOGLITAZONE PO; STOOL SOFTENER; TEMAZEPAM PO; TEMAZEPAM30 MG PO; TOPROL XL PO; TYLOX 5-500 CA1 EACH PO; ULTRAM PO; VESICARE PO; ZYLOPRIM PO; [UNRECOGNIZED DRUG - OTHER]
[2017-04-02 12:29] LABS: BASOPHIL# 0.1 X10e3 (0-0.3); BASOPHIL% 0.6 % (0-2.5); EOSINOPHIL% 0.1 % (0.0-7.0); HEMATOCRIT 45.3 % (38.0-50.0); HEMOGLOBIN 15.3 gm/dL (13.0-16.0); LYMPHOCYTE# 1.3 X10e3 (1.0-3.5); LYMPHOCYTE% 8.7 % (17.0-45.0); MEAN CELL VOLUME 94.7 FL (83-96); MEAN CORPUSCULAR HGB CONC 33.8 g/dL (30-36); MEAN PLATELET VOLUME 10.6 FL (6.5-11.5); MONOCYTE# 1.7 X10e3 (0-1.0); MONOCYTE% 11.5 % (3.0-12.0); NEUTROPHIL# 11.6 X10e3 (1.5-7.1); NEUTROPHIL% 79.1 % (40-75); PLATELET COUNT 183 X10e3 (140-420); RED BLOOD COUNT 4.78 X10e (3.90-5.60); RED CELL DISTRIBUTION WIDTH 14.6 % (11.0-15.5); WHITE BLOOD COUNT 14.7 X10e3 (4.0-10.5)
[2017-04-02 12:33] LABS: DIFF IND NO
[2017-04-02 12:35] LABS: INR 1.1; PARTIAL THROMBOPLASTIN TIME 30.6 SECONDS (23.5-31.3); PROTHROMBIN TIME (PATIENT) 12.3 SECONDS (10.0-11.7)
[2017-04-02] MEDS ORDERED: PACERONE100 MG PO (12:43)
[2017-04-02] MEDS ORDERED: METOPROLOL SUCC25 MG PO (12:43)
[2017-04-02] MEDS ORDERED: LEVEMIR FL100 UNIT/1 SUBQ (12:43)
[2017-04-02] MEDS ORDERED: PATIENT'S PHARMACY (12:43)
[2017-04-02] MEDS ORDERED: ALTOPREV40 MG PO (12:43)
[2017-04-02] MEDS ORDERED: ZYLOPRIM100 MG PO (12:43)
[2017-04-02] MEDS ORDERED: JANUVIA50 MG PO (12:44)
[2017-04-02] MEDS ORDERED: LEVO-T75 MCG PO (12:44)
[2017-04-02] MEDS ORDERED: ASPIRIN81 M2 PO (12:44)
[2017-04-02] MEDS ORDERED: GLIPIZIDE10 MG PO (12:44)
[2017-04-02 12:49] LABS: POC - CKMB 15.8 ng/mL (0.0-7.9); POC - TROPONIN 1.42 ng/mL (<=0.05)
[2017-04-02 13:04] LABS: ALBUMIN SERUM 3.4 g/dL (3.5-5.0); BILIRUBIN, DIRECT 0.4 mg/dL (0.0-0.2); BILIRUBIN,INDIRECT 0.9 mg/dL (0.0-0.9); BILIRUBIN,TOTAL 1.3 mg/dL (0.2-2.0); CALCIUM SERUM 8.6 mg/dL (8.4-10.2); GLOM FILT RATE Estimated 29.8 mL/min (>60); POTASSIUM 4.6 mmol/L (3.5-5.1); PROTEIN TOTAL SERUM 7.4 g/dL (6.0-8.3)
[2017-04-02 13:18] LABS: URINE SOURCE CLEAN CATCH
[2017-04-02 13:24] LABS: URINE APPEARANCE CLEAR; URINE BILIRUBIN NEG (NEG); URINE BLOOD TRACE (NEG); URINE COLOR DK YELLOW; URINE GLUCOSE 500 MG/DL (NEG); URINE KETONE NEG (NEG); URINE LEUKOCYTE ESTERASE NEG (NEG); URINE NITRATE NEG (NEG); URINE PROTEIN 2+ (NEG); URINE SPECIFIC GRAVITY 1.026 (1.003-1.035)
[2017-04-02 13:27] LABS: URINE BACTERIA AUWI NEG (NEGATIVE); URINE SQUAMOUS EPITHELIAL CELL NONE SEEN /[HPF]
[2017-04-02 13:35] LABS: CULTURE INDICATED? NO; URBCS1 AUWI 0-2 /[HPF] (0-2)
[2017-04-02 14:47] LABS: POC - CKMB 18.9 ng/mL (0.0-7.9); POC - TROPONIN 2.17 ng/mL (<=0.05)
[2017-04-02 15:30] LABS: CHOLESTEROL 124 mg/dL (0-200); HDL CHOLESTEROL 48 mg/dL (29-75); LDL CHOLESTEROL 54 mg/dL (-130); LDL/HDL RATIO 1 RATIO (0-4); TRIGLYCERIDES 111 mg/dL (10-160)
[2017-04-02 19:16] LABS: MB 21.6 ng/ml
[2017-04-03 01:10] LABS: %MB 7.4 % (0.0-4.0); MB 19.3 ng/ml
[2017-04-03 03:33] LABS: BASOPHIL# 0.1 X10e3 (0-0.3); BASOPHIL% 0.4 % (0-2.5); EOSINOPHIL# 0.1 X10e3 (0-0.7); EOSINOPHIL% 0.5 % (0.0-7.0); HEMATOCRIT 44.5 % (38.0-50.0); LYMPHOCYTE# 1.9 X10e3 (1.0-3.5); LYMPHOCYTE% 12.9 % (17.0-45.0); MEAN CELL VOLUME 93.9 FL (83-96); MEAN CORPUSCULAR HEMOGLOBIN 31.6 PG (28-34); MEAN CORPUSCULAR HGB CONC 33.7 g/dL (30-36); MEAN PLATELET VOLUME 10.6 FL (6.5-11.5); MONOCYTE% 14.1 % (3.0-12.0); NEUTROPHIL# 10.4 X10e3 (1.5-7.1); NEUTROPHIL% 72.1 % (40-75); PLATELET COUNT 178 X10e3 (140-420); RED BLOOD COUNT 4.74 X10e (3.90-5.60); RED CELL DISTRIBUTION WIDTH 14.3 % (11.0-15.5); WHITE BLOOD COUNT 14.4 X10e3 (4.0-10.5)
[2017-04-03 03:37] LABS: DIFF IND NO
[2017-04-03 03:54] LABS: CALCIUM SERUM 8.3 mg/dL (8.4-10.2); GLOM FILT RATE Estimated 29.8 mL/min (>60); POTASSIUM 4.2 mmol/L (3.5-5.1)
[2017-04-03 16:06] LABS: %MB 4.7 % (0.0-4.0); MB 9.1 ng/ml
[2017-04-04 07:09] LABS: CALCIUM SERUM 8.3 mg/dL (8.4-10.2); GLOM FILT RATE Estimated 29.8 mL/min (>60); POTASSIUM 3.8 mmol/L (3.5-5.1)
[2017-04-04 07:12] LABS: %MB 4.5 % (0.0-4.0); MB 6.2 ng/ml
[2017-04-05 05:30] LABS: URINE APPEARANCE CLEAR; URINE BILIRUBIN NEG (NEG); URINE BLOOD NEG (NEG); URINE COLOR YELLOW; URINE GLUCOSE NEG (NEG); URINE KETONE NEG (NEG); URINE LEUKOCYTE ESTERASE NEG (NEG); URINE NITRATE NEG (NEG); URINE PROTEIN TRACE (NEG); URINE SPECIFIC GRAVITY 1.015 (1.003-1.035)
[2017-04-05 07:16] LABS: HEMATOCRIT 38.3 % (38.0-50.0); HEMOGLOBIN 13.2 gm/dL (13.0-16.0); MEAN CELL VOLUME 93.6 FL (83-96); MEAN CORPUSCULAR HEMOGLOBIN 32.3 PG (28-34); MEAN CORPUSCULAR HGB CONC 34.5 g/dL (30-36); MEAN PLATELET VOLUME 10.5 FL (6.5-11.5); RED BLOOD COUNT 4.1 X10e (3.90-5.60); RED CELL DISTRIBUTION WIDTH 13.9 % (11.0-15.5); WHITE BLOOD COUNT 10.5 X10e3 (4.0-10.5)
[2017-04-05 07:52] LABS: BUN/CREATININE RATIO 24.34; CALCIUM SERUM 8.2 mg/dL (8.4-10.2); CREATININE SERUM 2.3 mg/dL (0.6-1.4); GLOM FILT RATE Estimated 25.1 mL/min (>60); POTASSIUM 3.9 mmol/L (3.5-5.1)
[2017-04-06 05:19] LABS: HEMATOCRIT 38.7 % (38.0-50.0); HEMOGLOBIN 13.2 gm/dL (13.0-16.0); MEAN CELL VOLUME 93.7 FL (83-96); MEAN CORPUSCULAR HEMOGLOBIN 31.9 PG (28-34); MEAN PLATELET VOLUME 10.6 FL (6.5-11.5); RED BLOOD COUNT 4.13 X10e (3.90-5.60); RED CELL DISTRIBUTION WIDTH 14.1 % (11.0-15.5); WHITE BLOOD COUNT 11.8 X10e3 (4.0-10.5)
[2017-04-06 06:14] LABS: BUN/CREATININE RATIO 26.19; CALCIUM SERUM 8.7 mg/dL (8.4-10.2); CREATININE SERUM 2.1 mg/dL (0.6-1.4); GLOM FILT RATE Estimated 28.1 mL/min (>60); POTASSIUM 5.1 mmol/L (3.5-5.1)
== END 2017-04-06 21:58 | DRG 280 ==
LOC: CED 11:32 → C5B 15:00 → CEDOF 15:00 → C5B 18:36 → CEDOF 04-03 12:38 → C5B 04-06 21:58
PROVIDERS: Emergency Medicine; Internal Medicine Cardiovascular Disease; Internal Medicine Nephrology; Nurse Practitioner Family
PROC: B246YZZ Ultrasonography of Right and Left Heart using Other Contrast (ICD-10-PCS; principal; 2017-04-02)
DX: I21.4 Non-ST elevation (NSTEMI) myocardial infarction (principal); I50.23 Acute on chronic systolic (congestive) heart failure; N18.4 Chronic kidney disease, stage 4 (severe); E11.65 Type 2 diabetes mellitus with hyperglycemia; I13.0 Hypertensive heart and chronic kidney disease with heart failure and stage 1 through stage 4 chronic kidney disease, or unspecified chronic kidney disease; I69.351 Hemiplegia and hemiparesis following cerebral infarction affecting right dominant side; I73.9 Peripheral vascular disease, unspecified; I25.10 Atherosclerotic heart disease of native coronary artery without angina pectoris; E78.5 Hyperlipidemia, unspecified; N40.0 Benign prostatic hyperplasia without lower urinary tract symptoms; Z82.49 Family history of ischemic heart disease and other diseases of the circulatory system; I08.0 Rheumatic disorders of both mitral and aortic valves; S82.401A Unspecified fracture of shaft of right fibula, initial encounter for closed fracture; W19.XXXA Unspecified fall, initial encounter; Z85.53 Personal history of malignant neoplasm of renal pelvis; F41.9 Anxiety disorder, unspecified; Z90.5 Acquired absence of kidney; E11.319 Type 2 diabetes mellitus with unspecified diabetic retinopathy without macular edema; Z66 Do not resuscitate; Z87.891 Personal history of nicotine dependence; Z79.4 Long term (current) use of insulin
CPT/HCPCS: 36415; 71020; 73600; 73610; 80048; 80061; 80076; 81003; 82550; 82553; 82947; 83605; 83880; 84443; 84484; 85025; 85027; 85610; 85730; 87040; 93005; 93306; 97110; 97116; 97163; 97167; 97530; 99291; G8978-GP; G8979-GP; G8987-GO; G8988-GO; J1327; J1650; J1815; J1940